=== PATIENT | female | born 1980 | race African-American/Black ===

== ENCOUNTER 2017-11-21 15:48 | Emergency (ER) | payer SELFPAY ==
[~2017-11-21] VITALS: Ht 175.3 cm; Wt 90.0 kg
[2017-11-21 16:26] VITALS: BP 148/103
[2017-11-21 17:59] LABS: EOSINOPHILS % 3.5 % (0.0-5.0); HEMATOCRIT. 42.3 % (36.0-48.0); HEMOGLOBIN. 14.1 g/dL (12.0-16.0); LYMPHOCYTES % 26.3 % (20.0-50.0); MEAN CORPUSCULAR HEMOGLOBIN 30.6 pg (28.0-32.0); MEAN CORPUSCULAR VOLUME 91.6 fL (81.0-99.0); MONOCYTES % 10.7 % (2.0-8.0); NEUTROPHILS % 58.5 % (40.0-76.0); PLATELET 337 x1000/uL (130-400); RED BLOOD CELL COUNT 4.62 mill/uL (4.2-5.4)
[2017-11-21 18:03] LABS: CHLORIDE 108 mEq/L (98-107)
[2017-11-21 19:00] LABS: CLARITY URINE CLEAR (CLEAR); COLOR URINE YELLOW (YELLOW); KETONES URINE TRACE (NEGATIVE); LEUKOCYTE ESTERASE URINE NEGATIVE (NEGATIVE); NITRITE URINE POSITIVE (NEGATIVE); OCCULT BLOOD URINE TRACE (NEGATIVE); PROTEIN URINE NEGATIVE (NEGATIVE); SPECIFIC GRAVITY URINE 1.025 (1.005-1.030)
== END 2017-11-21 19:41 | disposition home or self-care (01) ==
LOC: ER 16:32
DX: N39.0 Urinary tract infection, site not specified (principal); R03.0 Elevated blood-pressure reading, without diagnosis of hypertension
CPT/HCPCS: 36415; 80053; 81003; 81025; 83690; 85025; 99284

== ENCOUNTER 2018-03-26 21:09 | Emergency (ER) | payer SELFPAY ==
[~2018-03-26] VITALS: Ht 175.3 cm; Wt 98.0 kg
[2018-03-27 03:52] VITALS: BP 139/88
== END 2018-03-27 04:24 | disposition home or self-care (01) ==
LOC: ER 21:09
DX: K04.7 Periapical abscess without sinus (principal); F17.200 Nicotine dependence, unspecified, uncomplicated
CPT/HCPCS: 99283

== ENCOUNTER 2023-08-06 03:54 | Emergency (ER) | payer MEDICAID, OTHER ==
[~2023-08-06] VITALS: Ht 175.3 cm; Wt 116.0 kg
[2023-08-06 04:04] VITALS: O2SAT 99
[2023-08-06 06:07] LABS: BASOPHILS % 1.4 % (0.0-2.0); DIFFERENTIAL COMMENT 0; EOSINOPHILS % 3.7 % (0.0-5.0); HEMATOCRIT. 30.3 % (36.0-48.0); HEMOGLOBIN. 9.7 g/dL (12.0-16.0); LYMPHOCYTES % 16.4 % (20.0-50.0); MEAN CORPUSCULAR HEMOGLOBIN 24.2 pg (28.0-32.0); MEAN CORPUSCULAR HGB CONC 31.9 g/dL (31.0-37.0); MEAN CORPUSCULAR VOLUME 75.9 fL (81.0-99.0); MEAN PLATELET VOLUME 8.8 fl (7.4-10.4); MONOCYTES % 7.1 % (2.0-8.0); NEUTROPHILS % 71.4 % (40.0-76.0); PLATELET 329 x1000/uL (130-400); RED BLOOD CELL COUNT 3.99 mill/uL (4.2-5.4); RED CELL DISTRIBUTION WIDTH 21.4 % (11.6-14.6); WHITE BLOOD COUNT 4.3 x1000/uL (4.5-11.0)
[2023-08-06 06:19] LABS: CHLORIDE 108 mEq/L (98-107); POTASSIUM 3.5 mEq/L (3.5-5.1); SODIUM 139 mEq/L (136-145)
[2023-08-06 06:20] LABS: CALCIUM 8.8 mg/dL (8.7-10.4); CARBON DIOXIDE 23 mEq/L (21-32)
[2023-08-06 06:25] LABS: CREATININE 0.8 mg/dL (0.6-1.0); GLUCOSE 156 mg/dL (70-105); UREA NITROGEN BLOOD 13 mg/dL (9-23)
[2023-08-06 06:27] LABS: ALANINE AMINOTRANSFERASE 81 IU/L (10-49); ALBUMIN 4.5 g/dL (3.2-4.8); ASPARTATE AMINOTRANSFERASE 48 IU/L (<34)
[2023-08-06 06:28] LABS: BILIRUBIN TOTAL 0.3 mg/dL (0.1-1.0); PROTEIN TOTAL 7.9 g/dL (6.0-8.3)
[2023-08-06 06:44] LABS: TROPONIN I HIGH SENSITIVITY < 4 ng/L (3.0-34)
[2023-08-06 06:52] LABS: HCG SCREEN NEGATIVE
[2023-08-06 08:55] LABS: TROPONIN I HIGH SENSITIVITY < 4 ng/L (3.0-34)
[2023-08-06] MEDS: IBUPROFEN 600MG TABLET PO STA (09:11)
[2023-08-06 10:28] LABS: CLARITY URINE CLEAR (CLEAR); COLOR URINE YELLOW (YELLOW); GLUCOSE URINE NEGATIVE (NEGATIVE); KETONES URINE NEGATIVE (NEGATIVE); LEUKOCYTE ESTERASE URINE 1+ (NEGATIVE); NITRITE URINE NEGATIVE (NEGATIVE); OCCULT BLOOD URINE 2+ (NEGATIVE); PH URINE 5.5 (4.5-8.0); PROTEIN URINE NEGATIVE (NEGATIVE); SPECIFIC GRAVITY URINE 1.019 (1.005-1.030); UROBILINOGEN URINE 0.2 E.U./dL (0.2-1.0)
[2023-08-06] MEDS ORDERED: IOHEXOL-350 100 ML BOTTLE ONE (11:00)
[2023-08-06 11:04] LABS: SQUAMOUS EPITHELIAL CELL URINE 1+ /lpf (RARE/1+)
[2023-08-06 11:05] LABS: BACTERIA URINE 1+
[2023-08-06 11:09] LABS: RBC URINE NONE SEEN /hpf (0-2)
[2023-08-06 11:33] VITALS: BP 109/64; PULSE 83; RESP 19; TEMP 98.1
== END 2023-08-06 11:58 | disposition home or self-care (01) ==
LOC: ER 03:54
DX: R07.9 Chest pain, unspecified (principal); D50.9 Iron deficiency anemia, unspecified
CPT/HCPCS: 80053; 81003; 81025; 84703; 83880; 83690; 85025; 84484; 36415; 71045; 71275; 93005; 99285; Q9967; Z7610